=== PATIENT | female | born 1950 | race African-American/Black ===

== ENCOUNTER 2022-03-05 10:18 | Inpatient (IN) | payer MEDICARE, MEDICAID ==
[~2022-03-05] VITALS: Ht 157.5 cm; Wt 70.9 kg
[2022-03-05] VITALS (31 sets, daily range): BP systolic 99–209; BP diastolic 42–95
[~2022-03-05 10:18] MED LIST: ABIL5 PO; ABILIFY PO; AMLODIPINE; ATEN50TA PO; ATENOLOL; ATOR20TA PO; BENA20TA77 PO; BENAZEPRIL; BENZ1TAB7 PO; CLOP-31 PO; COG2 PO; DEPAKOTE; DIVAL250 PO; DIVALPROEX; HYDR-4135 PO; HYDRALAZINE; JANUVIA; SERT100T PO; SERTRALINE; SIMVASTATIN; ZOLOFT
[2022-03-05 11:07] LABS: BASOPHILS % 0.9 % (0.0-2.0); EOSINOPHILS % 1.3 % (0.0-5.0); HEMOGLOBIN. 12.5 g/dL (12.0-16.0); LYMPHOCYTES % 33.6 % (20.0-50.0); MEAN CORPUSCULAR HEMOGLOBIN 25.1 pg (28.0-32.0); MEAN CORPUSCULAR VOLUME 76.4 fL (81.0-99.0); MEAN PLATELET VOLUME 9.4 fl (7.4-10.4); NEUTROPHILS % 58.2 % (40.0-76.0); PLATELET 173 x1000/uL (130-400); RED BLOOD CELL COUNT 4.97 mill/uL (4.2-5.4)
[2022-03-05 11:17] LABS: CHLORIDE 109 mEq/L (98-107)
[2022-03-05] MEDS ORDERED: NITROGLYCERIN 50MG PREMIX 250 ML IV ONE (13:00)
[2022-03-05] MEDS ORDERED: NITROGLYCERIN 50MG PREMIX 250 ML IV NR (13:30)
[2022-03-05] MEDS ORDERED: GUAIFENESIN 200MG/10ML SUGAR FREE UDC PO PRN (17:45)
[2022-03-05] MEDS ORDERED: CLONIDINE 0.1MG TABLET PO PRN (17:45)
[2022-03-05] MEDS ORDERED: MORPHINE SULFATE 2 MG/ML CPJ (NOT FOR IM USE) IV PRN (17:45)
[2022-03-05] MEDS ORDERED: ACETAMINOPHEN 325MG TABLET PO PRN (17:45)
[2022-03-05] MEDS ORDERED: ONDANSETRON HCL 4MG/2ML INJ IV PRN (17:45)
[2022-03-05] MEDS ORDERED: HYDROCODONE/ACETAMINOPHEN 5/325MG TABLET PO PRN (17:45)
[2022-03-05] MEDS ORDERED: DOCUSATE SODIUM 100MG CAPSULE PO PRN (17:45)
[2022-03-05] MEDS ORDERED: IPRATROPIUM/ALBUTEROL 0.5-3(2.5)MG/3ML NEB HHN PRN (17:45)
[2022-03-05] MEDS ORDERED: MAGNESIUM/ALUMINUM HYDROXIDE/SIMETHICONE 30ML UDC PO PRN (17:45)
[2022-03-05] MEDS ORDERED: DIPHENHYDRAMINE 50MG/ML VIAL IV PRN (17:45)
[2022-03-05] MEDS ORDERED: AMLO10TA80 PO (18:33)
[2022-03-05] MEDS: ENOXAPARIN 30MG/0.3ML SYR SUBCUT SCH (18:52)
[2022-03-05] MEDS: SODIUM CHLORIDE 0.9% INJ 3ML FLUSH IVF SCH (21:08)
[2022-03-05] MEDS ORDERED: NITROGLYCERIN 50MG PREMIX 250 ML IV PRN (21:15)
[2022-03-06] VITALS (44 sets, daily range): BP systolic 113–179; BP diastolic 21–86
[2022-03-06] MEDS: HYDRALAZINE 20MG/ML VIAL IV PRN ×2 (00:46→05:45)
[2022-03-06 05:25] LABS: BASOPHILS % 0.9 % (0.0-2.0); EOSINOPHILS % 2.2 % (0.0-5.0); HEMATOCRIT. 36.3 % (36.0-48.0); HEMOGLOBIN. 11.8 g/dL (12.0-16.0); LYMPHOCYTES % 31.1 % (20.0-50.0); MEAN CORPUSCULAR HEMOGLOBIN 24.9 pg (28.0-32.0); MEAN CORPUSCULAR VOLUME 76.4 fL (81.0-99.0); MEAN PLATELET VOLUME 9.5 fl (7.4-10.4); MONOCYTES % 8.2 % (2.0-8.0); NEUTROPHILS % 57.6 % (40.0-76.0); PLATELET 159 x1000/uL (130-400); RED BLOOD CELL COUNT 4.75 mill/uL (4.2-5.4); RED CELL DISTRIBUTION WIDTH 16.9 % (11.6-14.6)
[2022-03-06 05:39] LABS: CHLORIDE 105 mEq/L (98-107)
[2022-03-06] MEDS: SODIUM CHLORIDE 0.9% INJ 3ML FLUSH IVF SCH ×3 (05:45→21:40)
[2022-03-06] MEDS ORDERED: POTASSIUM CHLORIDE 20MEQ TABLET SR PO NR (07:30)
[2022-03-06] MEDS: HYDRALAZINE HCL 50MG TABLET PO SCH ×2 (08:44→20:17)
[2022-03-06] MEDS ORDERED: NALOXONE HCL 0.4MG/ML VIAL IV PRN (09:30)
[2022-03-06] MEDS ORDERED: METF-873 MT (09:30)
[2022-03-06 10:16] LABS: T4 FREE 0.95 ng/dL (0.76-1.46)
[2022-03-06] MEDS ORDERED: DEXTROSE 50% WATER 50ML SYRINGE IV PRN (11:45)
[2022-03-06] MEDS: BLOOD SUGAR DIAGNOSTIC STRIP TEST SCH ×3 (12:08→20:18)
[2022-03-06] MEDS: INSULIN LISPRO 100 UNITS/ML SUBCUT SCH ×3 (12:08→20:18)
[2022-03-06] MEDS: ENOXAPARIN 30MG/0.3ML SYR SUBCUT SCH (18:27)
[2022-03-06] MEDS ORDERED: BENZTROPINE MESYLATE 2MG TABLET PO SCH (21:00)
[2022-03-06] MEDS ORDERED: ATORVASTATIN CALCIUM 20MG TABLET PO SCH (21:00)
[2022-03-07] VITALS (12 sets, daily range): BP systolic 109–156; BP diastolic 48–78
[2022-03-07] MEDS: SODIUM CHLORIDE 0.9% INJ 3ML FLUSH IVF SCH (05:50)
[2022-03-07] MEDS: BLOOD SUGAR DIAGNOSTIC STRIP TEST SCH ×2 (06:48→12:27)
[2022-03-07] MEDS: INSULIN LISPRO 100 UNITS/ML SUBCUT SCH ×2 (08:00→12:49)
[2022-03-07] MEDS: HYDRALAZINE HCL 50MG TABLET PO SCH (08:29)
[2022-03-07] MEDS ORDERED: BENZTROPINE MESYLATE 1MG TABLET PO SCH (09:00)
[2022-03-07] MEDS ORDERED: ASPIRIN 81MG TABLET PO SCH (09:00)
== END 2022-03-07 16:50 | disposition home or self-care (01) | DRG 304 ==
LOC: ER 10:18 → CVICU 12:53 → EDBEDREQSVC 15:19 → ENRESERV 16:08 → 5EST 03-06 10:30
PROVIDERS: ADMIT Internal Medicine; ATTEND Internal Medicine
DX: I16.1 Hypertensive emergency (principal); N17.0 Acute kidney failure with tubular necrosis; I31.3 Pericardial effusion (noninflammatory); I25.10 Atherosclerotic heart disease of native coronary artery without angina pectoris; E78.5 Hyperlipidemia, unspecified; E87.6 Hypokalemia; E11.9 Type 2 diabetes mellitus without complications; I08.1 Rheumatic disorders of both mitral and tricuspid valves; I10 Essential (primary) hypertension; Z79.02 Long term (current) use of antithrombotics/antiplatelets; Z79.84 Long term (current) use of oral hypoglycemic drugs; Z79.899 Other long term (current) drug therapy; Z98.61 Coronary angioplasty status; R77.8 Other specified abnormalities of plasma proteins
CPT/HCPCS: 36415; 71045; 80053; 80061; 82962; 83036; 83880; 84439; 84443; 84484; 85025; 85379; 93005; 93306; 99291; J0360; J1650; J1815; J3490